=== PATIENT | female | born 1960 | race Caucasian/White ===

== ENCOUNTER → 2021-10-19 11:44 | Outpatient (BNVA) | payer OTHER, SELFPAY | PROVIDERS: Visit Provider Registered Nurse Neonatal Intensive Care | DX: N39.0 Urinary tract infection, site not specified (principal) | CPT/HCPCS: 81000; 87077; 87086; 87184 ==

== ENCOUNTER → 2021-12-31 10:04 | Outpatient (BNVA) | payer OTHER, SELFPAY | PROVIDERS: Visit Provider Nurse Practitioner Family | DX: N39.0 Urinary tract infection, site not specified (principal) | CPT/HCPCS: 81000; 87077; 87086; 87184 ==

== ENCOUNTER → 2022-01-08 11:48 | Outpatient (BNVA) | payer OTHER, SELFPAY | PROVIDERS: Visit Provider Nurse Practitioner Family | DX: N39.0 Urinary tract infection, site not specified (principal) | CPT/HCPCS: 81000 ==

== ENCOUNTER 2022-06-14 11:26 | Outpatient (CLI) | payer OTHER, SELFPAY ==
--- NOTE | 2022-06-14 11:36 | MM_ITS ---
WS: [email or web address] VIEWS: MLO and CC views both breasts. 3D digital tomosynthesis is also included in this exam. No priors. Findings: There was no sign of mass, architectural distortion or suspicious calcification in either breast. Fa [place]ty MM/[place] [id number] Impression: BI-RADS: 2-Benign FOLLOW-UP: 1 Year Follow-up This mammogram was also analyzed by the Computer Aided Detection System R2 Imag e Art Therapy Specialist.
--- NOTE | 2022-06-14 13:30 | XR_ITS ---
WS: [email or web address] SCREENING DEXA SCAN [employer] CLINICAL INFORMATION: Z13.820 - Encounter for screening for osteoporosis COMPARISON: None. FINDINGS: The L1-L4 bone mineral density measures 1.208 g/cm2. This corresponds to a T score score of 0.2 and Z score of 1.5. Left femoral neck bone mineral density measures 0.722 g/cm2. This corresponds to a T score of -2.3 an d Z score of -1.3. Right femoral neck bone mineral density measures 0.818 g/cm2. This corresponds to a T score -1.5of an d Z score of -0.5. Mean femoral neck bone mineral density measures 0.770 g/cm2. This corresponds to a T score of -1.9 an d Z score of -0.9. XR/XR DEXA axial skeleton* [id number] IMPRESSION: Osteopenia in the femoral necks. Normal bone mineralization in the lumbar spine likely spuriously elevated due to endplate sclerosis and hardware. Patient's FRAX calculated 10 year probability for major osteoporotic fracture i s 24.7 % and osteoporotic hip fracture is 7.1%.
== END 2022-06-14 11:27 | disposition home or self-care (01) ==
PROVIDERS: PCP Nurse Practitioner Family; Visit Provider Nurse Practitioner Family
DX: Z13.820 Encounter for screening for osteoporosis (principal); Z12.31 Encounter for screening mammogram for malignant neoplasm of breast; M85.89 Other specified disorders of bone density and structure, multiple sites
CPT/HCPCS: 77063; 77067; 77080

== ENCOUNTER → 2022-08-14 16:18 | Outpatient (BNVA) | payer OTHER, SELFPAY | PROVIDERS: PCP Nurse Practitioner Family; Visit Provider Specialist | DX: S52.572A Other intraarticular fracture of lower end of left radius, initial encounter for closed fracture (principal); S52.615A Nondisplaced fracture of left ulna styloid process, initial encounter for closed fracture; W18.39XA Other fall on same level, initial encounter | CPT/HCPCS: 73110 ==

== ENCOUNTER 2022-08-15 10:43 | Outpatient (CLI) | payer OTHER, SELFPAY ==
--- NOTE | 2022-08-15 11:07 | XR_ITS ---
WS: [email or web address] Exam: XR shoulder LT min 2V* [id number] Date/Time of Exam: 08/15/2022 11:19 AM Reason For Exam: injury/fall DOI:08/10/22 No fracture or dislocation. Degenerative changes of the glenohumeral joint and the AC joint. Normal s oft tissues. XR/XR shoulder LT min 2V* [id number] IMPRESSION: 1. Mild degenerative changes. No fracture or dislocation.
== END 2022-08-15 10:44 | disposition home or self-care (01) ==
LOC: RAD 10:46
PROVIDERS: PCP Nurse Practitioner Family; Visit Provider Specialist
DX: M25.512 Pain in left shoulder (principal)
CPT/HCPCS: 73030

== ENCOUNTER → 2022-08-21 12:58 | Outpatient (BNVA) | payer OTHER, SELFPAY | PROVIDERS: PCP Nurse Practitioner Family; Visit Provider Nurse Practitioner Family | DX: S52.502A Unspecified fracture of the lower end of left radius, initial encounter for closed fracture (principal); S52.602A Unspecified fracture of lower end of left ulna, initial encounter for closed fracture; W18.39XA Other fall on same level, initial encounter | CPT/HCPCS: 73110 ==

== ENCOUNTER 2022-08-21 16:07 | Outpatient (CLI) | payer OTHER, SELFPAY | END 2022-08-21 16:08 | disposition home or self-care (01) | LOC: SPT 16:08 | PROVIDERS: PCP Nurse Practitioner Family; Visit Provider Nurse Practitioner Family | DX: Z46.89 Encounter for fitting and adjustment of other specified devices (principal); S52.592D Other fractures of lower end of left radius, subsequent encounter for closed fracture with routine healing; X58.XXXD Exposure to other specified factors, subsequent encounter | CPT/HCPCS: 97760; L3982 ==

== ENCOUNTER → 2022-09-04 12:59 | Outpatient (BNVA) | payer OTHER, SELFPAY | PROVIDERS: PCP Nurse Practitioner Family; Visit Provider Nurse Practitioner Family | DX: S52.502D Unspecified fracture of the lower end of left radius, subsequent encounter for closed fracture with routine healing (principal); X58.XXXD Exposure to other specified factors, subsequent encounter | CPT/HCPCS: 73110 ==

== ENCOUNTER 2022-09-21 06:00 | Outpatient (RCR) | payer OTHER, SELFPAY | END 2022-10-20 23:59 | disposition home or self-care (01) | LOC: SOT 06:00 | PROVIDERS: Visit Provider Nurse Practitioner Family | DX: Z47.89 Encounter for other orthopedic aftercare (principal) | CPT/HCPCS: 97018; 97110; 97165 ==

== ENCOUNTER → 2022-09-23 09:09 | Outpatient (BNVA) | payer OTHER, SELFPAY | PROVIDERS: PCP Nurse Practitioner Family; Visit Provider Nurse Practitioner Family | DX: R39.9 Unspecified symptoms and signs involving the genitourinary system (principal); M79.672 Pain in left foot; M79.673 Pain in unspecified foot; M85.80 Other specified disorders of bone density and structure, unspecified site; N39.0 Urinary tract infection, site not specified | CPT/HCPCS: 81000; 87086 ==

== ENCOUNTER 2022-09-30 07:12 | Outpatient (CLI) | payer OTHER, SELFPAY ==
--- NOTE | 2022-09-30 07:23 | XR_ITS ---
WS: [email or web address] EXAMINATION: XR foot LT min 3V* [id number] REASON FOR EXAM: M79.672 - Pain in left foot COMPARISON: None available. ORDER DATE: 09/30/2022 7:27 AM TECHNIQUE: 3 views of the left foot were obtained. X-RAY FINDINGS: There are no fractures or dislocations. No focal abnormal soft tissue swelling. Joint spaces are pres erved. There are minor degenerative changes throughout the tarsal region. XR/XR foot LT min 3V* [id number] IMPRESSION: No fractures or dislocations of the left foot.
== END 2022-09-30 07:13 | disposition home or self-care (01) ==
LOC: RAD 07:16
PROVIDERS: PCP Nurse Practitioner Family; Visit Provider Nurse Practitioner Family
DX: M79.672 Pain in left foot (principal)
CPT/HCPCS: 73630

== ENCOUNTER → 2022-10-02 12:58 | Outpatient (BNVA) | payer OTHER, SELFPAY | PROVIDERS: PCP Nurse Practitioner Family; Visit Provider Nurse Practitioner Family | DX: S52.502A Unspecified fracture of the lower end of left radius, initial encounter for closed fracture (principal); S52.602A Unspecified fracture of lower end of left ulna, initial encounter for closed fracture; W18.39XA Other fall on same level, initial encounter | CPT/HCPCS: 73110 ==

== ENCOUNTER 2022-10-02 15:25 | Outpatient (CLI) | payer OTHER, SELFPAY | END 2022-10-02 15:26 | disposition home or self-care (01) | LOC: SPT 15:25 | PROVIDERS: PCP Nurse Practitioner Family; Visit Provider Nurse Practitioner Family | DX: Z46.89 Encounter for fitting and adjustment of other specified devices (principal); S52.592D Other fractures of lower end of left radius, subsequent encounter for closed fracture with routine healing; X58.XXXD Exposure to other specified factors, subsequent encounter | CPT/HCPCS: 97760; L3908 ==

== ENCOUNTER 2022-10-21 06:00 | Outpatient (RCR) | payer OTHER, SELFPAY | END 2022-11-20 23:59 | disposition home or self-care (01) | LOC: SOT 06:00 | PROVIDERS: Visit Provider Nurse Practitioner Family | DX: Z47.89 Encounter for other orthopedic aftercare (principal) | CPT/HCPCS: 97018; 97022; 97110; 97140 ==

== ENCOUNTER 2022-10-30 10:56 | Outpatient (RCR) | payer OTHER, SELFPAY | END 2022-11-20 23:59 | disposition home or self-care (01) | LOC: SPT 10:56 | PROVIDERS: Visit Provider Podiatrist Foot & Ankle Surgery | DX: M76.62 Achilles tendinitis, left leg (principal) | CPT/HCPCS: 97035; 97110; 97140; 97162 ==

== ENCOUNTER → 2022-10-30 14:32 | Outpatient (BNVA) | payer OTHER, SELFPAY | PROVIDERS: Visit Provider Nurse Practitioner Family | DX: S52.502A Unspecified fracture of the lower end of left radius, initial encounter for closed fracture (principal); S52.602A Unspecified fracture of lower end of left ulna, initial encounter for closed fracture; W18.39XA Other fall on same level, initial encounter | CPT/HCPCS: 73110 ==

== ENCOUNTER 2022-11-21 06:00 | Outpatient (RCR) | payer OTHER, SELFPAY | END 2022-12-04 23:59 | disposition home or self-care (01) | LOC: SPT 06:00 | PROVIDERS: Visit Provider Podiatrist Foot & Ankle Surgery | DX: M76.62 Achilles tendinitis, left leg (principal) | CPT/HCPCS: 97035; 97110; 97140 ==

== ENCOUNTER → 2023-02-25 09:49 | Outpatient (BNVA) | payer OTHER, SELFPAY | PROVIDERS: PCP Nurse Practitioner Family; Visit Provider Nurse Practitioner Family | DX: N39.0 Urinary tract infection, site not specified (principal) | CPT/HCPCS: 81000; 87077; 87086; 87184 ==

== ENCOUNTER 2023-04-02 16:38 | Outpatient (CLI) | payer OTHER, SELFPAY ==
--- NOTE | 2023-04-02 16:45 | MRR_ITS ---
PROCEDURE INFORMATION: Exam: MR Left Lower Extremity Joint Without Contrast; Ankle Exam date and time: 04/02/2023 4:54 PM Age: 62 years old Clinical indication: Pain; Ankle; Left; Additional info: Rule out achillies tendon tear TECHNIQUE: Imaging protocol: Magnetic resonance imaging of the left lower extremity without contrast. Exam focused on the ankle. COMPARISON: CR XR foot LT min 3V* [id number] 09/30/2022 7:29 AM FINDINGS: There is no evidence of acute fracture or dislocation. Alignment is anatomic. There is mild reactive bone marrow edema in the posterior calcaneus, subjacent to the Achilles tendon insertion. Bone marrow signal is otherwise normal. Mild degenerative changes are most conspicuous about the midfoot. The visualized portions of the medial, lateral and anterior ankle tendons are intact. There is evidence of mild chronic plantar fasciitis. There is moderate to severe tendinopathy and enthesopathy at the Achilles tendon insertion with associated partial-thickness tearing. There is normal signal in the sinus tarsi. There is a chronic tear of the anterior talofibular ligament. The posterior talofibular ligament is grossly intact. The calcaneofibular ligament is poorly seen. The visualized portions of the spring ligament and deltoid ligament complex are intact. MR/MR ankle LT wo con* [id number] IMPRESSION: 1. Severe tendinopathy, enthesopathy and partial-thickness tearing at the Achilles tendon insertion. 2. Chronic tear of the anterior talofibular ligament. 3. Evidence of mild chronic plantar fasciitis. 4. Additional findings, as above.
== END 2023-04-02 16:39 | disposition home or self-care (01) ==
LOC: RAD 16:39
PROVIDERS: PCP Nurse Practitioner Family; Visit Provider Podiatrist Foot & Ankle Surgery
DX: M24.572 Contracture, left ankle (principal); M76.62 Achilles tendinitis, left leg; M79.672 Pain in left foot; S93.492A Sprain of other ligament of left ankle, initial encounter; X58.XXXA Exposure to other specified factors, initial encounter; M72.2 Plantar fascial fibromatosis
CPT/HCPCS: 73721

== ENCOUNTER 2023-09-01 09:04 | Outpatient (CLI) | payer MEDICARE, SELFPAY ==
--- NOTE | 2023-09-01 09:11 | XRR_ITS ---
PROCEDURE INFORMATION: Exam: XR Cervical Spine Exam date and time: 09/01/2023 9:13 AM Age: 62 years old Clinical indication: Pain; Cervicalgia; Additional info: M54.2 - cervicalgia TECHNIQUE: Imaging protocol: Radiologic exam of the cervical spine. Views: 2 or 3 views. COMPARISON: CR XR shoulder LT min 2V* [id number] 08/15/2022 11:19 AM FINDINGS: Bones/joints: 3 mm anterolisthesis of C4 on C5. 3 mm retrolisthesis of C5 on C6. 4 mm anterolisthesis of C7 on T1. Very mild scoliosis. Severe C4-C5 and C5-C6 degenerative disc disease. Moderate C3-C4, C6-C7, and C7-T1 degenerative disc disease. Bilateral facet osteoarthritis at all levels ranging from mild to severe. Otherwise, unremarkable. Soft tissues: Unremarkable. XR/XR cervical spine 3V* [id number] IMPRESSION: 1. No acute findings. 2. Additional details as above.
[2023-09-01 09:44] LABS: Basophils # 0.1 10^3/uL (0.0-0.1); Basophils % 0.8 %; Eosinophils # 0.5 10^3/uL (0.0-0.8); Eosinophils % 8.6 %; Hematocrit 41.2 % (36-47); Lymphocytes # 1.5 10^3/uL (0.8-4.8); Lymphocytes % 25.3 %; Mean Corpuscular HGB Conc 32.3 g/dL (30-55); Mean Corpuscular Hemoglobin 28.9 pg (27-33); Mean Corpuscular Volume 89.4 fl (85-98); Mean Platelet Volume 10.3 fL (7.4-10.4); Monocytes # 0.5 10^3/uL (0.2-0.9); Monocytes % 7.6 %; Neutrophils # 3.45 10^3/uL (1.8-7.7); Neutrophils % 57.2 %; Nucleated Red Blood Cells % 0 %; Platelet Count 251 10^3/cmm (157-399); Red Blood Count 4.61 10^6/uL (3.85-5.65); Red Cell Distribution Width 14.4 % (12.1-15.1); White Blood Count 6.04 10^3/uL (3.29-11.43)
[2023-09-01 10:13] LABS: Alanine Aminotransferase 23 U/L (0-33); Albumin Level 4.2 g/dL (3.5-5.2); Alkaline Phosphatase 90 U/L (35-105); Aspartate Amino Transferase 26 U/L (0-32); Blood Urea Nitrogen 13 mg/dL (8-23); Calcium 9.4 mg/dL (8.5-10.5); Carbon Dioxide 25 mmol/L (22-29); Chloride 101 mmol/L (98-107); Chol HDL Ratio 4.58 mg/dL (0.0-4.40); Cholesterol 206 mg/dL (0-200); Globulin 2.6 g/dL (1.3-4.6); Glomerular Filtration Rate 84.2 mL/min (90-130); Glucose 98 mg/dL (65-115); HDL Cholesterol 45 mg/dL (60-100); LDL Cholesterol Calculated 137 mg/dL (50-129); LDL HDL Ratio 3.04 RATIO (0.00-3.22); Osmolality Calculated 284 mOsm/kg (285-295); Sodium 137 mmol/L (136-145); Thyroid Stimulating Hormone 5.06 uIU/mL (0.27-4.20); Total Bilirubin 0.4 mg/dL (0.15-1.2); Total Protein 6.8 g/dL (6.6-8.7); Triglycerides 122 mg/dL (0-150)
[2023-09-01 10:15] LABS: Anion Gap 15.9 (5-19); Potassium 4.9 mmol/L (3.5-5.1)
== END 2023-09-01 09:05 | disposition home or self-care (01) ==
LOC: LAB 09:06
PROVIDERS: PCP Nurse Practitioner Family; Visit Provider Nurse Practitioner Family
DX: M54.2 Cervicalgia (principal); E78.5 Hyperlipidemia, unspecified; R53.83 Other fatigue
CPT/HCPCS: 36415; 72040; 80053; 80061; 84443; 85025

== ENCOUNTER 2023-09-10 10:31 | Outpatient (CLI) | payer MEDICARE, SELFPAY ==
--- NOTE | 2023-09-10 10:34 | MM_ITS ---
WS: [email or web address] BILATERAL 3D TOMOSYNTHESIS DIGITAL SCREENING MAMMOGRAPHY WITH CAD CLINICAL INFORMATION: SCREENING HISTORY: Screening mammogram. No current complaints. COMPARISON: 2021 TECHNIQUE: Bilateral CC and MLO views. FINDINGS: Scattered fibroglandular densities bilaterally. No suspicious focal mass, asymmetry, calcifications, or architectural distortion. No evidence of malignancy. A few incidental punctate calcifications. IMPRESSION: MM/[place] [id number] BI-RADS: 2-Benign FOLLOW UP: 1 Year Follow-up Recommend return to annual screening mammography.
== END 2023-09-10 10:32 | disposition home or self-care (01) ==
LOC: RAD 10:31
PROVIDERS: PCP Nurse Practitioner Family; Visit Provider Nurse Practitioner Family
DX: Z12.31 Encounter for screening mammogram for malignant neoplasm of breast (principal)
CPT/HCPCS: 77063; 77067

== ENCOUNTER → 2023-09-15 09:59 | Outpatient (BNVA) | payer MEDICARE, SELFPAY | PROVIDERS: PCP Nurse Practitioner Family; Visit Provider Nurse Practitioner Family | DX: R53.82 Chronic fatigue, unspecified (principal) | CPT/HCPCS: 84439; 84443 ==

== ENCOUNTER 2023-09-17 10:23 | Outpatient (CLI) | payer MEDICARE, SELFPAY ==
--- NOTE | 2023-09-17 10:42 | XR_ITS ---
WS: [email or web address] Exam: XR hand RT min 3V* [id number] Date/Time of Exam: 09/17/2023 10:42 AM Reason For Exam: M79.643 - Pain in unspecified hand No acute fracture or dislocation. Mild degenerative changes in the IP and MP joints. Moderate DJD at the first CMC joint. No soft tissue foreign bodies are identified. IMPRESSION: 1. Degenerative changes. No fracture or dislocation.
--- NOTE | 2023-09-17 11:15 | US_ITS ---
WS: [email or web address] ULTRASOUND THYROID TECHNIQUE: Ultrasound of the thyroid. CLINICAL INFORMATION: R79.89 - Other specified abnormal findings of blood chemi... COMPARISON: None. FINDINGS: Thyroid: Right and left thyroid lobes are normal in size with heterogeneous echotexture and micronodu larity. Area of hypoechoic thyroid parenchyma LEFT lobe measuring 7 x 3 mm appears to merge with the surround ing tissue rather than representing a true nodule Otherwise no focal thyroid nodules bilaterally Right thyroid lobe: 3.1 cm x 1.5 cm x 1.1 cm Left thyroid lobe: 3.6 cm x 1.5 cm x 1.0 cm. Isthmus: 0.2 mm. Cervical lymphadenopathy: None. IMPRESSION: 1. Right and left thyroid lobes are normal in size with heterogeneous micronodular echotexture. Some what increased vascularity bilaterally. This can be seen with thyroiditis. Recommend correlation with thyroid function studies. 2. No suspicious nodules to target for biopsy
== END 2023-09-17 10:24 | disposition home or self-care (01) ==
LOC: RAD 10:24
PROVIDERS: PCP Nurse Practitioner Family; Visit Provider Nurse Practitioner Family
DX: R79.89 Other specified abnormal findings of blood chemistry (principal); M79.641 Pain in right hand; M19.041 Primary osteoarthritis, right hand
CPT/HCPCS: 73130; 76536

== ENCOUNTER 2023-10-20 12:43 | Outpatient (CLI) | payer MEDICARE, SELFPAY ==
--- NOTE | 2023-10-20 13:00 | MR_ITS ---
WS: [email or web address] MRI CERVICAL SPINE NONCONTRAST HISTORY: M54.2 - Cervicalgia COMPARISON: None available. Technique: Multiplanar, multisequence noncontrast imaging of the cervical spine. Severe cervical spondylosis. C5 retrolisthesis by 3 mm. C7 anterolisthesis by 3 mm. Disc spaces are n arrowed throughout, most significant at C4-5, C5-6 and C6-7. Osteophytosis at all levels. Increased T2 signal in the cervical cord centered at the C4-5 level extends over a length of 7 mm. Craniocervical junction, C1 and C2 relationship, odontoid process and soft tissues are normal. C2-C3: Disc osteophyte complex with mild asymmetry on the LEFT. No high-grade stenosis. C3-C4: Osteophytic ridging and disc protrusions and facet arthritis. Moderate bilateral foraminal arpit nosis, LEFT greater than RIGHT and moderate central stenosis. C4-C5: Marked osteophytic ridging and disc osteophyte complexes. Effacement of CSF Bilateral facet arthritis, greater on the RIGHT. Severe central and bilateral foraminal stenosis. C5-C6: Marked osteophytic ridging and disc osteophyte complexes. Bilateral facet joint arthritis. Mod erate to severe central and bilateral foraminal stenosis. C6-C7: Diffuse annular disc bulging with bilateral foraminal stenosis. Moderate central and LEFT fora cornelio stenosis and mild RIGHT foraminal stenosis. C7-T1: Mild annular disc bulging and mild foraminal narrowing. Paraspinal soft tissue are normal. MR/MR cervical spin wo con* [id number] IMPRESSION: 1. Advanced cervical spondylosis resulting in stenosis at multiple levels. Mos t significant stenosis at C4-5. 2. C4-5: Severe central and bilateral foraminal stenosis. 3. 7 mm cord myelomalacia at C4-5. 4. C5-6: Mild to moderate central and bilateral foraminal stenosis. 5. C6-7: Moderate central LEFT foraminal stenosis and mild RIGHT foraminal arpit nosis. 6. Moderate bilateral foraminal stenosis at C3-4 and mild at C7-T1. 7. Advanced facet joint arthritis encroaching upon the posterior thecal sac, m ost significant at C4-5 and C6-7.
== END 2023-10-20 12:44 | disposition home or self-care (01) ==
LOC: RAD 12:43
PROVIDERS: PCP Nurse Practitioner Family; Visit Provider Nurse Practitioner Family
DX: M54.2 Cervicalgia (principal); M47.812 Spondylosis without myelopathy or radiculopathy, cervical region; M48.02 Spinal stenosis, cervical region
CPT/HCPCS: 72141

== ENCOUNTER → 2023-10-28 14:56 | Outpatient (BNVA) | payer MEDICARE, SELFPAY | PROVIDERS: PCP Nurse Practitioner Family; Visit Provider Orthopaedic Surgery | DX: M54.2 Cervicalgia (principal); M47.12 Other spondylosis with myelopathy, cervical region | CPT/HCPCS: 99204 ==

== ENCOUNTER → 2023-10-30 10:09 | Outpatient (BNVA) | payer MEDICARE, SELFPAY | PROVIDERS: PCP Nurse Practitioner Family; Visit Provider Orthopaedic Surgery | DX: M47.12 Other spondylosis with myelopathy, cervical region (principal) | CPT/HCPCS: 80053; 81000; 85025 ==

== ENCOUNTER → 2023-11-12 10:15 | Outpatient (BNVA) | payer MEDICARE, SELFPAY | PROVIDERS: PCP Nurse Practitioner Family; Visit Provider Family Medicine | DX: Z01.818 Encounter for other preprocedural examination (principal) | CPT/HCPCS: 93005 ==

== ENCOUNTER 2023-11-26 10:12 | Observation (INO) | payer MEDICARE, SELFPAY ==
[2023-11-26] VITALS (20 sets, daily range): BP systolic 110–148; BP diastolic 58–96; PULSE 60–85; RESP 14–18; TEMP 36.2–36.8; O2SAT 94–99; BMI 30.2
--- NOTE | 2023-11-26 06:45 | P.ANESASSM_ITS ---
Pre-Anesthetic Assessment Height/Weight: Height 1.5 m Weight 68.039 kg Temp Pulse Resp BP Pulse Ox O2 Del Method 97.1 F L 64 16 126/96 97 Room Air 11/26/23 06:09 11/26/23 06:09 11/26/23 06:09 11/26/23 06:09 11/26/23 06:09 11/26/23 06:18 Preop Diagnosis: Cervical spondylosis with myelopathy Operation Date: 11/26/23 07:00 Proposed Procedures p Anterior Cervical Discectomy & Fusion ACDF w/ Anterior Interbody Fusion w/ Cage w/ Instrumentation w/ Allograft w/ Navigation(Not Applicable) - Robert Sommers, DO Familial anesthetic complications: None Was Beta Moon taken within 24 hours: N/A Was Clonidine taken within 24 hours: N/A Last intake: Intake Last Liquid Date 11/25/23 Last Liquid Time 19:30 Last Solid Date 11/25/23 Last Solid Time 19:30 Social No alcohol and No tobacco Exam alert, oriented x 3, clear to auscultation bilaterally and regular rate & rhythm Airway Mallampati: Class I Dentition: chipped (front top) GI Gastroesophageal Reflux Disease hx gastric bypass Metabolic Thyroid Disease Anesthetic Plan ASA status: 2 Anesthesia: General Risk of > 500 ml blood loss (7ml/kg in children): No Medications/Allergies Home Medications Medication Instructions Recorded Confirmed Last Taken Type calcium carb-vit D3-minerals 600 1 tab PO BID #180 tabs 11/12/21 11/26/23 11/25/23 Rx mg calcium-400 unit tablet Fastform Cock Up Splint #1 ea 08/21/22 11/12/23 Unknown Rx Cock Up Splint #1 ea 10/02/22 11/12/23 Unknown Rx levothyroxine 25 mcg capsule 25 mcg PO DAILY #90 caps 09/26/23 11/26/23 11/25/23 Rx famotidine 40 mg tablet 40 mg PO DAILY #90 tabs 10/08/23 11/26/23 11/25/23 Rx pantoprazole 40 mg tablet,delayed See Rx Instructions .Route 10/08/23 11/26/23 Unknown Rx release .COMPLEX #90 tabs gabapentin 300 mg capsule 300 mg PO TID 30 days #90 caps 10/28/23 11/26/23 11/25/23 Rx ascorbic acid (vitamin C) 500 mg mg PO DAILY 05/22/24 05/22/24 06/04/24 History capsule cyanocobalamin (vitamin B-12) 1,000 mcg PO DAILY 11/12/23 11/26/23 11/25/23 History 1,000 mcg capsule d-mannose 500 mg capsule (AZO 500 mg PO DAILY PRN uti 11/12/23 11/26/23 Unknown History D-Mannose) alendronate 70 mg tablet (Fosamax) 70 mg PO 11/25/23 11/21/23 History diclofenac 75 mg-misoprostol 200 tab PO 11/25/23 11/23/23 History mcg tablet,immediate,delayed release Allergies Allergy/AdvReac Type Severity Reaction Status Date / Time Penicillins Allergy Mild ADR-Nausea Verified 11/25/23 08:13 [facility] Anesthesia Medical History DDD (degenerative disc disease), cervical Surgical History Hx of lumpectomy Hx of gastric bypass Hx of cholecystectomy Hx of LASIK Hx of carpal tunnel repair Family History Mother Cancer lung Father CAD (coronary artery disease) Cancer prostate Sister Cancer breast Brother Diabetes Social History Smoking and tobacco/nicotine status: never used tobacco/nicotine Alcohol intake: unknown Substance/Drug Use: unknown Data Anesthesia Cardiac Studies: No Data to Display
[2023-11-26] MEDS: sodium chloride 0.9% 1,000 ML 30 ML IV (06:46)
[2023-11-26] MEDS: clindamycin 600 MG/50 ML PREMIX 100 MG IV ×3 (06:59→22:31)
--- NOTE | 2023-11-26 07:05 | W.PM.OPSUD ---
Surgery/Procedure H&P Update DATE OF PROCEDURE: November 26, 2023 DATE H&P PERFORMED: 11/12/23 H&P UPDATE INFORMATION: I have reviewed H&P completed within last 30 days, I have examined patient prior to procedure and No changes to prior documentation PREOP DIAGNOSIS: Cervical spondylosis with myelopathy PLANNED PROCEDURE: Operation Date: 11/26/23 07:00 Proposed Procedures p Anterior Cervical Discectomy & Fusion ACDF w/ Anterior Interbody Fusion w/ Cage w/ Instrumentation w/ Allograft w/ Navigation(Not Applicable) - Robert Sommers DO
[2023-11-26] MEDS: lidocaine-epi 1% 20 mL INJ INJECTION (07:53)
--- NOTE | 2023-11-26 10:06 | P.OP_ITS ---
Operative Report Date of procedure: November 26, 2023 Pre-op diagnosis: Cervical spondylosis with radiculopathy Post-op diagnosis: same Procedure done: 1. Anterior discectomy C3/C4 2. Anterior discectomy C4/C5 3. Anterior diskectomy C5/6 4. Anterior discectomy C6/7 5. Insertion of cage C3/4 6. Insertion of cage C4/5 7. Insertion of cage C5/6 8. Insertion of Cage C6/7 9. Instrumentation with anterior plate from C3-C7 10. Use of allograft Surgeon: Robert Sommers DO Estimated blood loss (mL): 15 Procedure: 1. Anterior discectomy C3/C4 2. Anterior discectomy C4/C5 3. Anterior diskectomy C5/6 4. Anterior discectomy C6/7 5. Insertion of cage C3/4 6. Insertion of cage C4/5 7. Insertion of cage C5/6 8. Insertion of Cage C6/7 9. Instrumentation with anterior plate from C3-C7 10. Use of allograft The patient was taken to the operating room, where he underwent general endo tracheal anesthesia without complications. He was then positioned supine on the operating table, and all areas of impingement were well padded. The arms were carefully padded and tucked at his sides. A roll was placed between the shoulder blades.. An x-ray was done to determine the appropriate level for the skin incision. The entire neck was then sterilely prepped and draped in the usual fashion. Neuromonitoring was attached prior to prepping. A transverse skin incision was made and carried down to the platysma muscle. This was then split in line with its fibers. Blunt dissection was carried down medial to the carotid sheath and lateral to the trachea and esophagus until the anterior cervical spine was visualized. A needle was placed into a disc and an x-ray was done to determine its location. The longus colli muscles were then elevated bilaterally with the electrocautery unit. Self-retaining retractors were placed deep to the longus colli muscle. Attention was brought to the C3/4 level that was confirmed on x-ray. A caspar pin was placed into the C3 vertebrae and the C4 vertebrae. The disk space was then distracted. The microscope was then brought in. A radical anterior disce ctomies were performed at C3/4. This included complete removal of the anterior annulus, nucleus, and posterior annulus. The posterior longitudinal ligament was removed as were the posterior osteophytes. Foraminotomies were then accomplished bilaterally. This was done using a high speed arin, kerrison rongeurs and curretes Once all of this was accomplished, the curved currette was used to check for any residual compression. The central canal was wide open as were the foramen. A high-speed bur was used to remove the cartilaginous endplates above and below the interspace. Bleeding cancellous bone was exposed. The disc space were measured and appropriate size cage were placed sterilely onto the field. Allograft graft was packed into the cages. The cage was then placed and there was good juxtaposition against the bleeding decorticated surfaces and good distraction of each interspace. Attention was brought to the next interspace. The [place] pins were removed. Bone wax was used to prevent any bleeding from occurring at the pin sites. Attention was brought to the C4/5 level that was confirmed on x-ray. A caspar pin was placed into the C4 vertebrae and the C5 vertebrae. The disk space was then distracted. The microscope was then brought in. A radical anterior discectomies were performed at C4/5. This included complete removal of the anterior annulus, nucleus, and posterior annulus. The posterior longitudinal ligament was removed as were the posterior osteophytes. Foraminotomies were then accomplished bilaterally. This was done using a high speed arin, kerrison rongeurs and curretes Once all of this was accomplished, the curved currette was used to check for any residual compression. The central canal was wide open as were the foramen. A high-speed bur was used to remove the cartilaginous endplates above and below the interspace. Bleeding cancellous bone was exposed. The disc space were measured and appropriate size cage were placed sterilely onto the field. Allograft graft was packed into the cages. The cage was then placed and there was good juxtaposition against the bleeding decorticated surfaces and good distraction of each interspace. Attention was brought to the next interspace. The [place] pins were removed. Bone wax was used to prevent any bleeding from occurring at the pin sites. Attention was brought to the C5/6 level that was confirmed on x-ray. A caspar pin was placed into the C5 vertebrae and the C6 vertebrae. The disk space was then distracted. The microscope was then brought in. A radical anterior discectomies were performed at C5/6. This included complete removal of the anterior annulus, nucleus, and posterior annulus. The posterior longitudinal ligament was removed as were the posterior osteophytes. Foraminotomies were then accomplished bilaterally. This was done using a high speed arin, kerrison rongeurs and curretes Once all of this was accomplished, the curved currette was used to check for any residual compression. The central canal was wide open as were the foramen. A high-speed bur was used to remove the cartilaginous endplates above and below the interspace. Bleeding cancellous bone was exposed. The disc space were measured and appropriate size cage were placed sterilely onto the field. Allograft graft was packed into the cages. The cage was then placed and there was good juxtaposition against the bleeding decorticated surfaces and good distraction of each interspace. Attention was brought to the next interspace. The [place] pins were removed. Bone wax was used to prevent any bleeding from occurring at the pin sites. Attention was brought to the C6/7 level that was confirmed on x-ray. A caspar pin was placed into the C6 vertebrae and the C7 vertebrae. The disk space was then distracted. The microscope was then brought in. A radical anterior discectomies were performed at C6/7. This included complete removal of the anterior annulus, nucleus, and posterior annulus. The posterior longitudinal l igament was removed as were the posterior osteophytes. Foraminotomies were then accomplished bilaterally. This was done using a high speed arin, kerrison rongeurs and curretes Once all of this was accomplished, the curved currette was used to check for any residual compression. The central canal was wide open as were the foramen. A high-speed bur was used to remove the cartilaginous endplates above and below the interspace. Bleeding cancellous bone was exposed. The disc space were measured and appropriate size cage were placed sterilely onto the field. Allograft graft was packed into the cages. The cage was then placed and there was good juxtaposition against the bleeding decorticated surfaces and good distraction of each interspace. Attention was brought to the next interspace. The [place] pins were removed. Bone wax was used to prevent any bleeding from occurring at the pin sites. The appropriate size anterior cervical locking plate was chosen and bent into gentle lordosis. Two screws were then placed into each of the vertebral bodies at C3, C4, C5, C6 and C7. There was excellent purchase. A final x-ray was done confirming good position of the hardware and Cages. The locking screws were then applied, also with excellent purchase. Following a final copious irrigation, there was good hemostasis and no dural leaks. The carotid pulse was strong. The wounds were then closed in layers using 2-0 Vicryl suture for the platysma muscle, 2-0 Vicryl suture for the subcutaneous tissue, and 4-0 monocryl suture in a subcuticular skin closure. Glue was placed followed by application of a sterile dressing. The drain was hooked to bulb suction. A soft collar was applied. The patient was then carefully returned to the supine position on his hospital bed where he was reversed and extubated and taken to the recovery room having tolerated the procedure well.
--- NOTE | 2023-11-26 10:35 | ANE.PACU2 ---
Inpatient post-anesthesia follow up: Airway intact: Yes Vital signs: Temperature 97.9 F Pulse Rate 71 Respiratory Rate 16 Blood Pressure 118/58 Pulse Oximetry 97 Oxygen Delivery Me thod Room Air Oxygen Flow Rate Fraction of Inspir ed Oxygen Hydration adequate: Yes Nausea and vomiting: No Pain level: 1 Mental status: Baseline
[2023-11-26] MEDS: lactated ringers 1,000 ML 90 ML IV ×2 (13:11→20:11)
[2023-11-26] MEDS: morphine 4 mg/mL SDV 1 mL 2 MG IVP ×2 (13:12→15:58)
--- NOTE | 2023-11-26 14:08 | XR_ITS ---
WS: [email or web address] XR cervical spine 3V* [id number] REASON FOR EXAM: JAY PICS FINDINGS: Anterior plate and screw fixation with interbody fusion devices C3-C7. The surgical appliances are intact and in proper position and alignment. XR/XR cervical spine 3V* [id number] IMPRESSION: Anterior fusion without abnormality.
[2023-11-26] MEDS: acetaminophen 325 mg Tablet 650 MG PO (15:22)
[2023-11-26] MEDS: gabapentin 300 mg Capsule PO ×2 (15:23→20:10)
[2023-11-26] MEDS: docusate sodium 100 mg Capsule PO (17:24)
[2023-11-26] MEDS: ketorolac 30 mg/mL INJ IVP (18:23)
[2023-11-26] MEDS: pantoprazole 40 mg SDV IVP (20:39)
[2023-11-27] MEDS: ketorolac 30 mg/mL INJ IVP ×2 (01:32→08:05)
[2023-11-27] MEDS: HYDROcodone-acetaminophen 5-325 mg Tablet PO (03:21)
[2023-11-27] MEDS: ondansetron 2 mg/ML SDV 2 mL 4 MG IVP (03:22)
[2023-11-27 04:15] VITALS: BP 134/80; PULSE 71; RESP 20; TEMP 36.8; O2SAT 95
[2023-11-27 06:00] VITALS: BP 145/82; PULSE 71; RESP 20; TEMP 36.8; O2SAT 96
[2023-11-27] MEDS: clindamycin 600 MG/50 ML PREMIX 100 MG IV (06:08)
[2023-11-27] MEDS: lactated ringers 1,000 ML 90 ML IV (06:08)
[2023-11-27 08:00] VITALS: BP 163/81; PULSE 76; RESP 17; TEMP 36.8; O2SAT 9
[2023-11-27] MEDS: pantoprazole DR 40 mg Tablet PO (08:05)
[2023-11-27] MEDS: gabapentin 300 mg Capsule PO (08:05)
[2023-11-27] MEDS: docusate sodium 100 mg Capsule PO (08:05)
[2023-11-27] MEDS: levothyroxine 25 mcg Tablet PO (08:05)
[2023-11-27 09:52] VITALS: PULSE 77; O2SAT 96
[2023-11-27 11:51] VITALS: BP 138/78; PULSE 68; RESP 16; TEMP 36.6; O2SAT 99
--- NOTE | 2023-11-27 14:38 | PC.NURSE ---
Discussed discharge instructions, surgical instructions, activity, medications, medications to discontinue and follow up appointments. Patient verbalized understanding.
[2023-11-27 14:43] VITALS: BP 138/78; PULSE 68; RESP 16; TEMP 36.6; O2SAT 99
== END 2023-11-27 11:45 | disposition home or self-care (01) ==
LOC: MEDSURG 10:12
PROVIDERS: Admitting Provider Orthopaedic Surgery; PCP Nurse Practitioner Family; Visit Provider Orthopaedic Surgery
PROC: 0RB30ZZ Excision of Cervical Vertebral Disc, Open Approach (ICD-10-PCS; CPT 22551; principal; 2023-11-26 07:00)
DX: M47.892 Other spondylosis, cervical region (principal); K21.9 Gastro-esophageal reflux disease without esophagitis; Z98.84 Bariatric surgery status; M50.30 Other cervical disc degeneration, unspecified cervical region
CPT/HCPCS: 20930; 22551; 22552 ×3; 22846; 22853 ×4; 51702; 72040; 76000; 97110; 97116; 97161; 97530; C1713; C1763; C9113; C9359; G0378; J1100; J1885; J2250; J2270; J2371; J2405; J2704; J2710; J3010; J3490; J7030; J7120

== ENCOUNTER → 2023-12-11 10:56 | Outpatient (BNVA) | payer MEDICARE, SELFPAY | PROVIDERS: PCP Nurse Practitioner Family; Visit Provider Orthopaedic Surgery | DX: Z98.1 Arthrodesis status (principal) | CPT/HCPCS: 99024 ==

== ENCOUNTER 2023-12-11 15:14 | Outpatient (CLI) | payer MEDICARE, SELFPAY | END 2023-12-11 15:15 | disposition home or self-care (01) | LOC: SPT 15:15 | PROVIDERS: PCP Nurse Practitioner Family; Visit Provider Orthopaedic Surgery | DX: Z46.89 Encounter for fitting and adjustment of other specified devices (principal); M47.12 Other spondylosis with myelopathy, cervical region | CPT/HCPCS: L0172 ==

== ENCOUNTER → 2023-12-30 10:31 | Outpatient (BNVA) | payer MEDICARE, SELFPAY | PROVIDERS: PCP Nurse Practitioner Family; Visit Provider Nurse Practitioner Family | DX: E07.9 Disorder of thyroid, unspecified (principal); R79.89 Other specified abnormal findings of blood chemistry | CPT/HCPCS: 84443 ==

== ENCOUNTER → 2023-12-31 13:03 | Outpatient (BNVA) | payer MEDICARE, SELFPAY | PROVIDERS: PCP Nurse Practitioner Family; Visit Provider Specialist | DX: M18.11 Unilateral primary osteoarthritis of first carpometacarpal joint, right hand | CPT/HCPCS: 73130 ==

== ENCOUNTER 2023-12-31 14:58 | Outpatient (CLI) | payer MEDICARE, SELFPAY | END 2023-12-31 14:59 | disposition home or self-care (01) | LOC: SPT 14:59 | PROVIDERS: PCP Nurse Practitioner Family; Visit Provider Specialist | DX: Z46.89 Encounter for fitting and adjustment of other specified devices (principal); M18.11 Unilateral primary osteoarthritis of first carpometacarpal joint, right hand; M19.041 Primary osteoarthritis, right hand | CPT/HCPCS: 97760; L3924 ==

== ENCOUNTER → 2024-01-08 10:37 | Outpatient (BNVA) | payer MEDICARE, SELFPAY | PROVIDERS: PCP Nurse Practitioner Family; Visit Provider Orthopaedic Surgery | DX: Z98.1 Arthrodesis status (principal) | CPT/HCPCS: 72040; 99024 ==

== ENCOUNTER → 2024-02-19 07:46 | Outpatient (BNVA) | payer MEDICARE, SELFPAY | PROVIDERS: PCP Nurse Practitioner Family; Visit Provider Orthopaedic Surgery | DX: Z98.1 Arthrodesis status (principal) | CPT/HCPCS: 72040; 99024 ==

== ENCOUNTER 2024-03-03 09:31 | Outpatient (RCR) | payer MEDICARE, SELFPAY | END 2024-03-22 23:59 | disposition home or self-care (01) | LOC: SPT 09:31 | PROVIDERS: PCP Nurse Practitioner Family; Visit Provider Orthopaedic Surgery | DX: M43.22 Fusion of spine, cervical region (principal) | CPT/HCPCS: 97110; 97161 ==

== ENCOUNTER → 2024-03-12 09:22 | Outpatient (BNVA) | payer MEDICARE, SELFPAY | PROVIDERS: PCP Nurse Practitioner Family; Visit Provider Specialist | DX: M18.11 Unilateral primary osteoarthritis of first carpometacarpal joint, right hand (principal); Z71.89 Other specified counseling | CPT/HCPCS: 20600 ==

== ENCOUNTER 2024-03-23 06:30 | Outpatient (RCR) | payer MEDICARE, SELFPAY | END 2024-04-22 23:59 | disposition home or self-care (01) | LOC: SPT 06:30 | PROVIDERS: PCP Nurse Practitioner Family; Visit Provider Orthopaedic Surgery | DX: M43.22 Fusion of spine, cervical region (principal) | CPT/HCPCS: 97110 ==

== ENCOUNTER → 2024-04-15 09:44 | Outpatient (BNVA) | payer MEDICARE, SELFPAY | PROVIDERS: PCP Nurse Practitioner Family; Visit Provider Nurse Practitioner Family | DX: R53.82 Chronic fatigue, unspecified (principal); R79.89 Other specified abnormal findings of blood chemistry | CPT/HCPCS: 84443 ==

== ENCOUNTER → 2024-05-27 08:44 | Outpatient (BNVA) | payer MEDICARE, SELFPAY | PROVIDERS: PCP Nurse Practitioner Family; Visit Provider Orthopaedic Surgery | DX: Z98.890 Other specified postprocedural states (principal); Z98.1 Arthrodesis status | CPT/HCPCS: 99213 ==

== ENCOUNTER 2024-05-27 09:30 | Outpatient (CLI) | payer MEDICARE, SELFPAY ==
--- NOTE | 2024-05-27 09:35 | XR_ITS ---
WS: [email or web address] XR lumbar spine 2-3V* [id number] REASON FOR EXAM: M54.50 - Low back pain, unspecified FINDINGS: Mild rotatory dextroscoliosis of the lumbar spine with exaggerated lordosis. Mild to moderate narrowing of the disc spaces with mild endplate sclerosis and osteophytosis. Significant narrowing of the L4-L5 disc space with vacuum phenomena with moderate endplate sclerosis and osteophytosis. Significant narrowing of the L5-S1 disc space with mild endplate sclerosis and ost eophytosis. No significant vertebral body abnormality with mild to moderate vertebral body osteophytosis L1-L5. 5 mm of anterolisthesis of L4 on L5 and L5 on S1. Moderate degenerative hypertrophic arthropathy in t he facet joints L3-S1. XR/XR lumbar spine 2-3V* [id number] IMPRESSION: Significant degenerative spondylosis as above.
== END 2024-05-27 09:31 | disposition home or self-care (01) ==
LOC: RAD 09:32
PROVIDERS: PCP Nurse Practitioner Family; Visit Provider Nurse Practitioner Family
DX: M51.360 Other intervertebral disc degeneration, lumbar region with discogenic back pain only (principal); M99.63 Osseous and subluxation stenosis of intervertebral foramina of lumbar region; M43.16 Spondylolisthesis, lumbar region; M25.78 Osteophyte, vertebrae
CPT/HCPCS: 72040; 72100

== ENCOUNTER 2024-06-15 12:23 | Outpatient (RCR) | payer MEDICARE, SELFPAY | END 2024-06-22 23:59 | disposition home or self-care (01) | LOC: SPT 12:23 | PROVIDERS: PCP Nurse Practitioner Family; Visit Provider Nurse Practitioner Family | DX: M51.369 Other intervertebral disc degeneration, lumbar region without mention of lumbar back pain or lower extremity pain (principal) | CPT/HCPCS: 97161 ==

== ENCOUNTER 2024-06-23 06:30 | Outpatient (RCR) | payer MEDICARE, SELFPAY | END 2024-07-23 23:59 | disposition home or self-care (01) | LOC: SPT 06:30 | PROVIDERS: PCP Nurse Practitioner Family; Visit Provider Nurse Practitioner Family | DX: M51.369 Other intervertebral disc degeneration, lumbar region without mention of lumbar back pain or lower extremity pain (principal) | CPT/HCPCS: 97110 ==

== ENCOUNTER → 2024-07-27 15:07 | Outpatient (BNVA) | payer MEDICARE, SELFPAY | PROVIDERS: PCP Nurse Practitioner Family; Visit Provider Orthopaedic Surgery | DX: M54.2 Cervicalgia (principal); Z98.1 Arthrodesis status | CPT/HCPCS: 72040; 99213 ==

== ENCOUNTER → 2024-08-05 11:07 | Outpatient (BNVA) | payer MEDICARE, SELFPAY | PROVIDERS: PCP Nurse Practitioner Family; Visit Provider Nurse Practitioner Family | DX: I10 Essential (primary) hypertension (principal) | CPT/HCPCS: 80053; 80061; 84443 ==

== ENCOUNTER → 2024-08-09 09:46 | Outpatient (BNVA) | payer MEDICARE, SELFPAY | PROVIDERS: PCP Nurse Practitioner Family; Referring Provider Nurse Practitioner Family; Visit Provider Anesthesiology Pain Medicine | DX: M47.12 Other spondylosis with myelopathy, cervical region (principal); M51.362 Other intervertebral disc degeneration, lumbar region with discogenic back pain and lower extremity pain; M54.16 Radiculopathy, lumbar region; Z98.1 Arthrodesis status; Z98.890 Other specified postprocedural states | CPT/HCPCS: 99204 ==

== ENCOUNTER 2024-08-13 13:48 | Outpatient (CLI) | payer MEDICARE, SELFPAY ==
--- NOTE | 2024-08-13 14:00 | XR_ITS ---
WS: [email or web address] DEXA (DUAL ENERGY X-RAY ABSORPTIOMETRY) Bone mineral density was performed using a iRise machine. HISTORY: M81.0 - Age-related osteoporosis without current patholog... COMPARISON: 06/14/2022 Lumbar spine BMD (L1-L4): 1.256 g/cm2 T score: 0.6 Z score: 2.2 Total hip BMD: Left: 0.802 g/cm2. T score: -1.6 Z score: -0.4 Right: 0.789 g/cm2. T score: -1.7 Z score: -0.5 10 year probability of a major osteoporotic fracture is 20.2%. Compared to the prior study from 06/14/2022. Lumbar spine bone mineral density has increased by 4.0%. Bilateral hips bone mineral density has increased by 3.4%. XR/XR DEXA axial skeleton* [id number] IMPRESSION: OSTEOPENIA based upon the WHO classification for females. Since the prior exam there has been an increase in bone mineral density within the lumbar spine and hips.
== END 2024-08-13 13:49 | disposition home or self-care (01) ==
LOC: RAD 13:48
PROVIDERS: PCP Nurse Practitioner Family; Visit Provider Nurse Practitioner Family
DX: M81.0 Age-related osteoporosis without current pathological fracture (principal); M85.80 Other specified disorders of bone density and structure, unspecified site
CPT/HCPCS: 77080

== ENCOUNTER → 2024-09-03 08:25 | Outpatient (BNVA) | payer MEDICARE, SELFPAY | PROVIDERS: PCP Nurse Practitioner Family; Visit Provider Specialist | DX: M18.11 Unilateral primary osteoarthritis of first carpometacarpal joint, right hand (principal); M79.644 Pain in right finger(s); G89.29 Other chronic pain | CPT/HCPCS: 99213 ==

== ENCOUNTER 2024-09-15 12:58 | Outpatient (RCR) | payer MEDICARE, SELFPAY | END 2024-09-20 23:59 | disposition home or self-care (01) | LOC: SOT 12:58 | PROVIDERS: Visit Provider Specialist | DX: M54.50 Low back pain, unspecified (principal); M19.90 Unspecified osteoarthritis, unspecified site | CPT/HCPCS: 97165 ==

== ENCOUNTER 2024-09-15 13:11 | Outpatient (CLI) | payer MEDICARE, SELFPAY ==
--- NOTE | 2024-09-15 13:16 | MM_ITS ---
WS: [email or web address] BILATERAL 3D TOMOSYNTHESIS DIGITAL SCREENING MAMMOGRAM WITH CAD CLINICAL INFORMATION: SCREENING HISTORY: Screening mammogram. No current complaints. COMPARISON: 2023 TECHNIQUE: Bilateral CC and MLO views. FINDINGS: Fatty-replaced breasts bilaterally. Increasing 4 to 5 mm nodule subareolar RIGHT breast. Recommend subareolar RIGHT breast ultrasound Unremarkable LEFT breast. MM/MM scr BI tomosynthesis [id number] IMPRESSION: DENSITY: The breasts are almost entirely fatty. BI-RADS: 0 - Incomplete: Need additional imaging evaluation. FOLLOW UP: Need Additional Imaging Recommend subareolar RIGHT breast ultrasound
== END 2024-09-15 13:12 | disposition home or self-care (01) ==
LOC: RAD 13:12
PROVIDERS: PCP Nurse Practitioner Family; Visit Provider Nurse Practitioner Family
DX: Z12.31 Encounter for screening mammogram for malignant neoplasm of breast (principal); R92.313 Mammographic fatty tissue density, bilateral breasts; N63.41 Unspecified lump in right breast, subareolar
CPT/HCPCS: 77063; 77067

== ENCOUNTER 2024-09-21 06:00 | Outpatient (RCR) | payer MEDICARE, SELFPAY | END 2024-10-20 23:59 | disposition home or self-care (01) | LOC: SOT 06:00 | PROVIDERS: PCP Nurse Practitioner Family; Visit Provider Specialist | DX: M18.11 Unilateral primary osteoarthritis of first carpometacarpal joint, right hand (principal) | CPT/HCPCS: 97022; 97110 ==

== ENCOUNTER 2024-09-30 13:22 | Outpatient (CLI) | payer MEDICARE, SELFPAY ==
--- NOTE | 2024-09-30 14:00 | US_ITS ---
WS: [id number] ULTRASOUND BREAST RIGHT TECHNIQUE: Ultrasound right breast focused area of concern. CLINICAL INFORMATION: R92.8 - Other abnormal and inconclusive findings on diagn... FINDINGS: Ultrasound subareolar RIGHT breast. Normal underlying parenchymal tissue. No evidence of subareolar mass or lesion. Normal shadowing nipple tissue. No suspicious findings. US/US breast RT limited* [id number] IMPRESSION: Recommend return to annual screening mammography
== END 2024-09-30 13:23 | disposition home or self-care (01) ==
PROVIDERS: PCP Nurse Practitioner Family; Visit Provider Nurse Practitioner Family
DX: R92.8 Other abnormal and inconclusive findings on diagnostic imaging of breast (principal)
CPT/HCPCS: 76642

== ENCOUNTER → 2024-11-02 10:46 | Outpatient (BNVA) | payer MEDICARE, SELFPAY | PROVIDERS: PCP Nurse Practitioner Family; Visit Provider Nurse Practitioner Family | DX: M47.12 Other spondylosis with myelopathy, cervical region (principal); Z98.1 Arthrodesis status; Z98.890 Other specified postprocedural states; M51.362 Other intervertebral disc degeneration, lumbar region with discogenic back pain and lower extremity pain | CPT/HCPCS: 99214 ==

== ENCOUNTER → 2024-11-30 14:45 | Outpatient (BNVA) | payer MEDICARE, SELFPAY | PROVIDERS: PCP Nurse Practitioner Family; Visit Provider Orthopaedic Surgery | DX: Z98.1 Arthrodesis status (principal) | CPT/HCPCS: 72040; 99213 ==

== ENCOUNTER → 2024-12-23 15:06 | Outpatient (BNVA) | payer MEDICARE, SELFPAY | PROVIDERS: PCP Nurse Practitioner Family; Referring Provider Orthopaedic Surgery; Visit Provider Specialist | DX: M47.12 Other spondylosis with myelopathy, cervical region (principal); Z98.1 Arthrodesis status; M79.644 Pain in right finger(s); G89.29 Other chronic pain | CPT/HCPCS: 95911 ==

== ENCOUNTER → 2025-01-18 12:38 | Outpatient (BNVA) | payer MEDICARE, SELFPAY | PROVIDERS: PCP Nurse Practitioner Family; Visit Provider Orthopaedic Surgery | DX: M79.641 Pain in right hand (principal); M79.642 Pain in left hand; M47.12 Other spondylosis with myelopathy, cervical region | CPT/HCPCS: 99213 ==

== ENCOUNTER → 2025-02-04 08:52 | Outpatient (BNVA) | payer MEDICARE, SELFPAY | PROVIDERS: PCP Nurse Practitioner Family; Visit Provider Nurse Practitioner Family | DX: Z01.89 Encounter for other specified special examinations (principal); I10 Essential (primary) hypertension; R53.83 Other fatigue; R79.89 Other specified abnormal findings of blood chemistry | CPT/HCPCS: 80053; 80061; 84443; 85025 ==

== ENCOUNTER 2025-03-02 12:03 | Outpatient (CLI) | payer MEDICARE, SELFPAY ==
--- NOTE | 2025-03-02 12:14 | XR_ITS ---
WS: [id number] Right knee, 3 views, 03/02/2025 Clinical Data: M25.569 - Pain in unspecified knee Comparison: None. Findings: No fractures or dislocations are seen. There is medial joint compartment narrowing with spurring of the medial femoral condyle and medial tibial plateau. There is a spur of the posterior superior patella. The soft tissues are unremarkable. XR/XR knee RT 3V* [id number] Impression: Osteoarthritis of the right knee with medial joint compartment narrowing and sp urring of the posterior superior patella.
== END 2025-03-02 12:04 | disposition home or self-care (01) ==
PROVIDERS: PCP Nurse Practitioner Family; Visit Provider Nurse Practitioner Family
DX: M25.561 Pain in right knee (principal)
CPT/HCPCS: 73562